=== PATIENT | male | born 1940 | race Caucasian/White ===

== ENCOUNTER 2024-02-01 14:31 | Inpatient (IN) | payer MEDICARE ==
--- NOTE | 2024-02-01 15:27 | ED ---
General Adult HPI - General Chief complaint: Abdominal Pain Stated complaint: Abd Pain Time Seen by Provider: 02/01/24 14:51 Source: patient, EMS, RN notes reviewed, old records reviewed Mode of arrival: EMS Limitations: no limitations, altered mental status - History of Present Illness Initial comments: Patient is an 83-year-old male present to the emergency department with concern for abdominal pain. Patient was transferred from [facility]. There they did evaluation with CT scan concerning for diverticulitis with abscess. Patient was transferred for surgical care. The reports revealed symptoms for a week however patient states that has been going on for months. Patient is a poor historian. - Related Data Home Medications Medication Instructions Recorded Confirmed Aspirin 81 mg PO DAILY 02/04/14 02/04/14 Ibuprofen [Motrin] 400 mg PO Q8HR PRN 02/04/14 02/04/14 Simvastatin [Zocor] 40 mg PO HS 02/04/14 02/04/14 lisinopriL [Prinivil] 20 mg PO DAILY 02/04/14 02/04/14 Previous Rx's Medication Instructions Recorded cloNIDine [Catapres-TTS] 1 each TRANSDERM Q7DAYS #4 patch 02/04/14 Allergies Allergy/AdvReac Type Severity Reaction Status Date / Time amoxicillin [Amoxicillin] Allergy Rash/Hives Verified 02/01/24 14:47 cephalexin monohydrate Allergy Rash/Hives Verified 02/01/24 14:47 [From Keflex] Review of Systems ROS Statement: Those systems with pertinent positive or pertinent negative responses have been documented in the HPI. Limitations: ROS unobtainable due to patients medical condition Gastrointestinal: Reports: as per HPI, abdominal pain Past Medical History Past Medical History: Hyperlipidemia, Hypertension History of Any Multi-Drug Resistant Organisms: None Reported Past Surgical History: Tonsillectomy Additional Past Surgical History / Comment(s): Right toe, left knee Past Psychological History: No Psychological Hx Reported Smoking Status: Never smoker Past Alcohol Use History: Occasional Past Drug Use History: None Reported General Exam Limitations: no limitations, altered mental status General appearance: alert, in no apparent distress Head exam: Present: normocephalic Eye exam: Present: normal appearance Neck exam: Present: normal inspection Respiratory exam: Present: normal lung sounds bilaterally Cardiovascular Exam: Present: regular rate, normal rhythm GI/Abdominal exam: Present: soft, tenderness (Moderate to severe tenderness left lower abdomen), normal bowel sounds. Absent: distended, rebound, rigid, pulsatile mass Extremities exam: Present: normal inspection Neurological exam: Present: alert Psychiatric exam: Present: normal affect, normal mood Skin exam: Present: normal color Course Vital Signs 02/01/24 14:35 Temperature 97.6 F Pulse Rate 66 Respiratory 18 Rate Blood Pressure 120/76 O2 Sat by Pulse 96 Oximetry Medical Decision Making - Medical Decision Making Was pt. sent in by a medical professional or institution (, PA, DEWATERING FILTERING SUPERVISOR, urgent care, hospital, or senior living...) When possible be specific @ -Patient was sent from [facility] Did you speak to anyone other than the patient for history (EMS, parent, family, police, friend...)? What history was obtained from this source @ -I did speak with transferring physician Dr. Moore Did you review nursing and triage notes (agree or disagree)? Why? @ -I reviewed and agree with nursing and triage notes Were old charts reviewed (outside hosp., previous admission, EMS record, old EKG, old radiological studies, urgent care reports/EKG's, senior living records)? Report findings @ -Chart reviewed from [facility] Differential Diagnosis (chest pain, altered mental status, abdominal pain women, abdominal pain men, vaginal bleeding, weakness, fever, dyspnea, syncope, headache, dizziness, GI bleed, back pain, seizure, CVA, palpatations, mental health, musculoskeletal)? @ -Differential Abdominal Pain Men: Appendicitis, cholecystitis, diverticulosis, ischemic bowel, pancreatitis, hepatitis, UTI, gastroenteritis, AAA, incarcerated hernia, bowel obstruction, constipation, inflammatory bowel, hepatitis, peptic ulcer disease, splenic infarction, perforated viscus, testicular torsion, this is not meant to be an all-inclusive list EKG interpreted by me (3pts min.). @ -As above X-rays interpreted by me (1pt min.). @ -None done CT interpreted by me (1pt min.). @ -None done U/S interpreted by me (1pt. min.). @ -None done What testing was considered but not performed or refused? (CT, X-rays, U/S, labs)? Why? @ -Consider blood work, blood culture and CT however this was done at transferring facility What meds were considered but not given or refused? Why? @ -IV antibiotics will be continued Did you discuss the management of the patient with other professionals (professionals i.e. , PA, DEWATERING FILTERING SUPERVISOR, lab, RT, psych nurse, social media campaign manager, shipping hand, teacher, juvenile probation officer, upper caser)? Give summary @ -Dr. Santos, for surgical call Was smoking cessation discussed for >3mins.? @ -No Was critical care preformed (if so, how long)? @ -No Were there social determinants of health that impacted care today? How? (Homelessness, low income, unemployed, alcoholism, drug addiction, transportation, low edu. Level, literacy, decrease access to med. care, fpc, rehab)? @ -No Was there de-escalation of care discussed even if they declined (Discuss DNR or withdrawal of care, Hospice)? DNR status @ -No What co-morbidities impacted this encounter? (DM, HTN, Smoking, COPD, CAD, Cancer, CVA, ARF, Chemo, Hep., AIDS, mental health diagnosis, sleep apnea, morbid obesity)? @ -There is a history of dementia and appears also to be some sort of history of colon cancer. Was patient admitted / discharged? Hospital course, mention meds given and route, prescriptions, significant lab abnormalities, going to OR and other pertinent info. @ -Patient presents as a transfer for diverticulitis with abscess formation. Patient will be admitted, orders written. Undiagnosed new problem with uncertain prognosis? @ -No Drug Therapy requiring intensive monitoring for toxicity (Heparin, Nitro, Insulin, Cardizem)? @ -No Were any procedures done? @ -No Diagnosis/symptom? @ -Diverticulitis with abscess Acute, or Chronic, or Acute on Chronic? @ -Acute Uncomplicated (without systemic symptoms) or Complicated (systemic symptoms)? @ -Complicated with abscess Side effects of treatment? @ -No Exacerbation, Progression, or Severe Exacerbation? @ -No Poses a threat to life or bodily function? How? (Chest pain, [place], [place], pneumonia, PE, COPD, DKA, ARF, appy, cholecystitis, CVA, Diverticulitis, Homicidal, Suicidal, threat to staff... and all critical care pts) @ -Threat to bowel function and sepsis Disposition Clinical Impression: Diverticulitis of intestine with abscess Disposition: ADMITTED IP TO THIS HOSP Condition: Serious Is patient prescribed a controlled substance at d/c from ED?: No Referrals: Rodrigo Washburn MD [Primary Care Provider] - 1-2 days Time of Disposition: 15:26
[2024-02-01] MEDS ORDERED: NALOXONE 0.4 MG/ML 1 ML VIAL IV PRN (15:29)
[2024-02-01] MEDS ORDERED: ONDANSETRON 4 MG/2 ML VIAL IVP PRN (15:29)
[2024-02-01] MEDS: SODIUM CHLORIDE 0.9% 1,000 ML IV SCH (16:18)
[2024-02-01] MEDS: metroNIDAZOLE-NS PMX 500 MG in SALINE 1 100ML.BAG IVPB SCH (16:18)
[2024-02-01] MEDS: LEVOFLOXACIN 750MG-D5W PMX 750 MG in DEXTROSE/WATER 1 150ML.BAG IVPB ONE (16:18)
--- NOTE | 2024-02-01 22:15 | P.HPIM ---
History of Present Illness H&P Date: 02/01/24 Chief Complaint: Jack pain This 83-year-old patient who follows with Dr. Washburn. Because of underlying dementia patient not able to give much of a history. History is obtained by the nurse in the ER and, transfer notes from [facility]. Chronic medical conditions include hypertension, some colon resection for colon cancer, gout, dementia hyperlipidemia. Patient presented to the ER for 1 week of abdominal pain. At the baseline patient has diarrhea. CT scan showed proximal sigmoid area air-fluid level collection 6.1 x 9.5 cm representing an abscess. Patient started on IV Levaquin and Flagyl in the ER. IV fluids. Made NPO. Patient's was present earlier was left the ER now. Review of systems cannot really be obtained because of patient's underlying dementia -Physical examination: VITAL SIGNS: 98.6, 88, 18, 123 x 69, 96% room air GENERAL: BMI 24.3, laying in bed awake not in distress. EYES: Pupils equal. Conjunctiva yanni l. HEENT: External appearance of nose and ears normal, oral cavity grossly normal. NECK: JVD not raised; masses not palpable. HEART: First and second heart sounds are normal; no edema. LUNGS: Respiratory rate normal; decreased breath sounds. ABDOMEN: Soft, left-sided tenderness, no obvious guarding or rigidity liver spleen not palpable, no masses palpable. PSYCH: Patient can tell his name. Not sure about the age. Not sure about the month or the president l. MUSCULOSKELETAL:No Clubbing/cyanosis;muscles-grossly intact. OA NEUROLOGICAL: Cranial nerves grossly intact; no facial asymmetry, power and sensation grossly intact. LYMPHATICS: No lymph nodes palpable in the axilla and neck INVESTIGATIONS, reviewed in the clinical context: Blood work from [facility]: White count 14.3 hemoglobin 13.4 platelets 315 sodium 131 potassium 2.9 BUN 20.[address] scan abdomen results: Gallstones. 1.8 cm nodule left lobe of the liver. Inflammatory changes around the proximal sigmoid colon along with a air-fluid collection 6.1 x 9.5 cm. Assessment plan: -Acute diverticulitis with perforation with what appears to be questionable contained abscess with a CT scan showing 6.1 x 9.5 cm. IV Levaquin. IV Flagyl. General surgery following. Patient NPO. -Severe cognitive impairment from underlying Alzheimer's dementia Namenda. Aricept -Essential hypertension Losartan hydrochlorothiazide -Hyperlipidemia Crestor -History of prior colon cancer with localized resection -Full code [nurse had called the to check on the same] Resume home medications. Keep n.p.o. except for oral medication with a sip of water Thank you Dr. Santos Past Medical History Past Medical History: Hyperlipidemia, Hypertension History of Any Multi-Drug Resistant Organisms: None Reported Past Surgical History: Tonsillectomy Additional Past Surgical History / Comment(s): Right toe, left knee Past Psychological History: No Psychological Hx Reported Smoking Status: Never smoker Past Alcohol Use History: Occasional Past Drug Use History: None Reported Medications and Allergies Home Medications Medication Instructions Recorded Confirmed Type Aspirin 81 mg PO DAILY 02/04/14 02/01/24 History Donepezil [Aricept] 10 mg PO DAILY 02/01/24 02/01/24 History Losartan/Hydrochlorothiazide 1 tab PO DAILY 02/01/24 02/01/24 History [Losartan-Hctz 50-12.5 mg Tab] Memantine [Namenda] 10 mg PO BID 02/01/24 02/01/24 History Rosuvastatin Calcium [Crestor] 40 mg PO DAILY 02/01/24 02/01/24 History hydroCHLOROthiazide [Hydrodiuril] 12.5 mg PO DAILY 02/01/24 02/01/24 History Allergies Allergy/AdvReac Type Severity Reaction Status Date / Time amoxicillin [Amoxicillin] Allergy Rash/Hives Verified 02/01/24 15:58 cephalexin monohydrate Allergy Rash/Hives Verified 02/01/24 15:58 [From Keflex] Physical Exam Vitals: Vital Signs Temp Pulse Resp BP Pulse Ox 02/01/24 20:13 98.6 F 88 18 123/69 96 02/01/24 14:35 97.6 F 66 18 120/76 96 Intake and Output 02/01/24 02/01/24 02/01/24 06:59 14:59 22:59 Other: Weight 70.307 kg
[2024-02-01 22:27] LABS: Basophils % (A) 0 %; Eosinophils % (A) 0 %; HCT 40.7 % (39.0-53.0); HGB 13.2 gm/dL (13.0-17.5); Lymphocytes # (A) 0.6 k/uL (1.0-4.8); Lymphocytes % (A) 3 %; MCH 32.1 pg (25.0-35.0); MCHC 32.5 g/dL (31.0-37.0); Mean Platelet Volume 7.4; Monocytes # (A) 0.8 k/uL (0-1.0); Monocytes % (A) 4 %; Neutrophils # (A) 17.3 k/uL (1.3-7.7); Neutrophils % (A) 92 %; Platelet Count 369 k/uL (150-450); RBC 4.11 m/uL (4.30-5.90); RDW 12.3 % (11.5-15.5); WBC 18.9 k/uL (3.8-10.6)
[2024-02-01 22:37] LABS: ALT 15 U/L (4-49); AST 21 U/L (17-59); African American GFR (CKD) 76 (>60 ml/min/1.73 sqM); Albumin 2.8 g/dL (3.5-5.0); Alkaline Phosphatase 89 U/L (38-126); Anion Gap 10 mmol/L; Blood Urea Nitrogen 18 mg/dL (9-20); Calcium 8.6 mg/dL (8.4-10.2); Carbon Dioxide 21 mmol/L (22-30); Chloride 102 mmol/L (98-107); Globulin 2.8 g/dL; Glucose 78 mg/dL (74-99); Non-African American GFR(CKD) 66 (>60 ml/min/1.73 sqM); Potassium 3.1 mmol/L (3.5-5.1); Sodium 133 mmol/L (137-145); Total Bilirubin 1.5 mg/dL (0.2-1.3); Total Protein 5.6 g/dL (6.3-8.2)
[2024-02-01] MEDS: ENOXAPARIN 40 MG/0.4 ML SYRINGE SQ SCH (22:52)
--- NOTE | 2024-02-01 23:10 | P.GSCN ---
History of Present Illness History of present illness: is 83-year-old patient who follows with Dr. Washburn. Because of underlying dementia patient not able to give much of a history. History is obtained by the nurse in the ER and, transfer notes from [facility]. Chronic medical conditions include hypertension, some colon resection for colon cancer, gout, dementia hyperlipidemia. Patient presented to the ER for 1 week of abdominal pain. At the baseline patient has diarrhea. CT scan showed proximal sigmoid area air-fluid level collection 6.1 x 9.5 cm representing an abscess. Patient started on IV Levaquin and Flagyl in the ER. IV fluids. Made NPO. Patient's was present earlier was left the ER now. Review of Systems - Constitutional Reports as per HPI Past Medical History Past Medical History: Hyperlipidemia, Hypertension History of Any Multi-Drug Resistant Organisms: None Reported Past Surgical History: Tonsillectomy Additional Past Surgical History / Comment(s): Right toe, left knee Past Psychological History: No Psychological Hx Reported Smoking Status: Never smoker Past Alcohol Use History: Occasional Past Drug Use History: None Reported Medications and Allergies Home Medications Medication Instructions Recorded Confirmed Type Aspirin 81 mg PO DAILY 02/04/14 02/01/24 History Donepezil [Aricept] 10 mg PO DAILY 02/01/24 02/01/24 History Losartan/Hydrochlorothiazide 1 tab PO DAILY 02/01/24 02/01/24 History [Losartan-Hctz 50-12.5 mg Tab] Memantine [Namenda] 10 mg PO BID 02/01/24 02/01/24 History Rosuvastatin Calcium [Crestor] 40 mg PO DAILY 02/01/24 02/01/24 History hydroCHLOROthiazide [Hydrodiuril] 12.5 mg PO DAILY 02/01/24 02/01/24 History Allergies Allergy/AdvReac Type Severity Reaction Status Date / Time amoxicillin [Amoxicillin] Allergy Rash/Hives Verified 02/01/24 15:58 cephalexin monohydrate Allergy Rash/Hives Verified 02/01/24 15:58 [From Keflex] Surgical - Exam Osteopathic Statement: *. No significant issues noted on an osteopathic structural exam other than those noted in the History and Physical/Consult. Vital Signs Temp Pulse Resp BP Pulse Ox 97.6 F 66 18 120/76 96 02/01/24 14:35 02/01/24 14:35 02/01/24 14:35 02/01/24 14:35 02/01/24 14:35 - General gen: nad cv: rrr pul: non labored breathing abd: soft, non distended, tender to palpation in left lower quadrant, Results - Labs 02/01/24 21:32 02/01/24 21:32 Abnormal Lab Results - Last 24 Hours (Table) 02/01/24 02/01/24 Range/Units 21:32 21:32 WBC 18.9 H (3.8-10.6) k/uL RBC 4.11 L (4.30-5.90) m/uL Neutrophils # 17.3 H (1.3-7.7) k/uL Lymphocytes # 0.6 L (1.0-4.8) k/uL Sodium 133 L (137-145) mmol/L Potassium 3.1 L (3.5-5.1) mmol/L Carbon Dioxide 21 L (22-30) mmol/L Total Bilirubin 1.5 H (0.2-1.3) mg/dL Total Protein 5.6 L (6.3-8.2) g/dL Albumin 2.8 L (3.5-5.0) g/dL Diabetes panel 02/01/24 Range/Units 21:32 Sodium 133 L (137-145) mmol/L Potassium 3.1 L (3.5-5.1) mmol/L Chloride 102 (98-107) mmol/L Carbon Dioxide 21 L (22-30) mmol/L BUN 18 (9-20) mg/dL Creatinine 1.06 (0.66-1.25) mg/dL Glucose 78 (74-99) mg/dL Calcium 8.6 (8.4-10.2) mg/dL AST 21 (17-59) U/L ALT 15 (4-49) U/L Alkaline Phosphatase 89 (38-126) U/L Total Protein 5.6 L (6.3-8.2) g/dL Albumin 2.8 L (3.5-5.0) g/dL Calcium panel 02/01/24 Range/Units 21:32 Calcium 8.6 (8.4-10.2) mg/dL Albumin 2.8 L (3.5-5.0) g/dL Pituitary panel 02/01/24 Range/Units 21:32 Sodium 133 L (137-145) mmol/L Potassium 3.1 L (3.5-5.1) mmol/L Chloride 102 (98-107) mmol/L Carbon Dioxide 21 L (22-30) mmol/L BUN 18 (9-20) mg/dL Creatinine 1.06 (0.66-1.25) mg/dL Glucose 78 (74-99) mg/dL Calcium 8.6 (8.4-10.2) mg/dL Adrenal panel 02/01/24 Range/Units 21:32 Sodium 133 L (137-145) mmol/L Potassium 3.1 L (3.5-5.1) mmol/L Chloride 102 (98-107) mmol/L Carbon Dioxide 21 L (22-30) mmol/L BUN 18 (9-20) mg/dL Creatinine 1.06 (0.66-1.25) mg/dL Glucose 78 (74-99) mg/dL Calcium 8.6 (8.4-10.2) mg/dL Total Bilirubin 1.5 H (0.2-1.3) mg/dL AST 21 (17-59) U/L ALT 15 (4-49) U/L Alkaline Phosphatase 89 (38-126) U/L Total Protein 5.6 L (6.3-8.2) g/dL Albumin 2.8 L (3.5-5.0) g/dL Assessment and Plan Assessment: 83 yo male w/ diverticular abscess -iv abx -npo -IR for drainage Time with Patient: Less than 30
--- NOTE | 2024-02-02 00:37 | XR ---
EXAM: XR Chest, 1 View CLINICAL HISTORY: ITS.REASON XR Reason: per Dr. Sher TECHNIQUE: Frontal view of the chest. COMPARISON: No previous studies. FINDINGS: Lungs: Minimal scarring/subsegmental atelectasis noted near the left CP angle. Pleural space: Unremarkable. No pneumothorax. Heart: Mild cardiomegaly. Post CABG changes. Mediastinum: Unremarkable. Normal mediastinal contour. Bones/joints: Sternotomy wires are noted in place. No acute fracture. Other findings: Hypoaeration. IMPRESSION: 1. Mild cardiomegaly. 2. Post CABG changes. 3. Minimal scarring/subsegmental atelectasis at the left lung base. 4. Hypoaeration.
[2024-02-02 09:01] LABS: Basophils # (A) 0.03 X 10*3/uL (0.00-0.10); Basophils % (A) 0.2 %; Eosinophils # (A) 0.02 X 10*3/uL (0.04-0.35); Eosinophils % (A) 0.1 %; HCT 37.6 % (39.6-50.0); HGB 12.5 g/dL (13.0-17.0); Lymphocytes # (A) 0.71 X 10*3/uL (0.90-5.00); MCH 32.1 pg (27.0-32.0); MCHC 33.2 g/dL (32.0-37.0); MCV 96.4 FL (80.0-97.0); Mean Platelet Volume 9.5 FL (9.5-12.2); Monocytes # (A) 1.12 X 10*3/uL (0.20-1.00); Monocytes % (A) 6.4 %; NRBC Per 100 WBC 0 X 10*3/uL (0.00-0.01); Neutrophils # (A) 15.67 X 10*3/uL (1.80-7.70); Neutrophils % (A) 88.8 %; Platelet Count 361 X 10*3/uL (140-440); RDW 12.5 % (11.5-14.5); WBC 17.63 X 10*3/uL (4.50-10.00)
[2024-02-02] MEDS: LOSARTAN-HCTZ 50-12.5 MG 1 EACH TAB PO SCH (09:07)
[2024-02-02] MEDS: ATORVASTATIN 80 MG TAB PO SCH (09:08)
[2024-02-02] MEDS: MEMANTINE 10 MG TAB PO SCH (09:08)
[2024-02-02] MEDS: DONEPEZIL 10 MG TAB PO SCH (09:08)
[2024-02-02] MEDS: PANTOPRAZOLE 40 MG/10 ML VIAL IV SCH (09:11)
[2024-02-02 09:42] LABS: ALT 11 U/L (10-49); AST 18 U/L (14-35); Albumin 2.8 g/dL (3.8-4.9); Albumin/Globulin Ratio 1.08 Ratio (1.60-3.17); Alkaline Phosphatase 88 U/L (41-126); BUN/Creat Ratio 14.42 Ratio (12.00-20.00); Blood Urea Nitrogen 17.3 mg/dL (9.0-27.0); Calcium 8.4 mg/dL (8.7-10.3); Carbon Dioxide 21.7 mmol/L (21.6-31.8); Chloride 98 mmol/L (96-109); Globulin 2.6 g/dL (1.6-3.3); Glucose 95 mg/dL (70-110); Potassium 3.2 mmol/L (3.5-5.5); Sodium 137 mmol/L (135-145); Total Bilirubin 1.2 mg/dL (0.3-1.2); Total Protein 5.4 g/dL (6.2-8.2)
[2024-02-02] MEDS: POTASSIUM CHLORIDE ER 20 MEQ TAB.ER PO STA (11:21)
[2024-02-02 14:38] LABS: INR 1.2 (<1.2); Prothrombin Time 12.8 sec (10.0-12.5)
--- NOTE | 2024-02-02 14:40 | P.PN ---
Subjective Patient seen and evaluated at bedside. Patient complaining of abdominal pain. Objective - Vital Signs Vital signs: Vital Signs Temp 98.2 F 02/02/24 10:54 Pulse 62 02/02/24 10:54 Resp 18 02/02/24 10:54 BP 118/69 02/02/24 10:54 Pulse Ox 94 L 02/02/24 10:54 FiO2 Intake & Output 02/01/24 02/02/24 02/02/24 18:59 06:59 18:59 Weight 70.307 kg 70.307 kg - Exam gen: nad cv: rrr pul: non labored breathing abd: soft, non distended, tender to palpation in the left upper quadrant - Labs CBC & Chem 7: 02/02/24 04:10 02/02/24 04:10 Labs: Abnormal Lab Results - Last 24 Hours (Table) 02/01/24 02/01/24 02/02/24 Range/Units 21:32 21:32 04:10 WBC 18.9 H 17.63 H (3.8-10.6) k/uL RBC 4.11 L 3.90 L (4.30-5.90) m/uL Hgb 12.5 L (13.0-17.0) g/dL Hct 37.6 L (39.6-50.0) % MCH 32.1 H (27.0-32.0) pg Immature Gran # 0.08 H (0.00-0.04) X 10*3/uL Neutrophils # 17.3 H 15.67 H (1.3-7.7) k/uL Lymphocytes # 0.6 L 0.71 L (1.0-4.8) k/uL Monocytes # 1.12 H (0.20-1.00) X 10*3/uL Eosinophils # 0.02 L (0.04-0.35) X 10*3/uL Sodium 133 L (137-145) mmol/L Potassium 3.1 L (3.5-5.1) mmol/L Carbon Dioxide 21 L (22-30) mmol/L Anion Gap (4.00-12.00) mmol/L Calcium (8.7-10.3) mg/dL Total Bilirubin 1.5 H (0.2-1.3) mg/dL Total Protein 5.6 L (6.3-8.2) g/dL Albumin 2.8 L (3.5-5.0) g/dL Albumin/Globulin Ratio (1.60-3.17) Ratio 02/01/ Range/Units 04:10 WBC (3.8-10.6) k/uL RBC (4.30-5.90) m/uL Hgb (13.0-17.0) g/dL Hct (39.6-50.0) % MCH (27.0-32.0) pg Immature Gran # (0.00-0.04) X 10*3/uL Neutrophils # (1.3-7.7) k/uL Lymphocytes # (1.0-4.8) k/uL Monocytes # (0.20-1.00) X 10*3/uL Eosinophils # (0.04-0.35) X 10*3/uL Sodium (137-145) mmol/L Potassium 3.2 L (3.5-5.1) mmol/L Carbon Dioxide (22-30) mmol/L Anion Gap 17.30 H (4.00-12.00) mmol/L Calcium 8.4 L (8.7-10.3) mg/dL Total Bilirubin (0.2-1.3) mg/dL Total Protein 5.4 L (6.3-8.2) g/dL Albumin 2.8 L (3.5-5.0) g/dL Albumin/Globulin Ratio 1.08 L (1.60-3.17) Ratio Assessment and Plan Assessment: 83 yo male w/ diverticular abscess -continue abx -IR drainage Time with Patient: Less than 30
[2024-02-02] MEDS: MORPHINE SULFATE 4 MG/ML SYRINGE IV PRN (16:20)
--- NOTE | 2024-02-02 16:48 | P.PN ---
Progress Note - Text Progress Note Date: 02/02/24 Chief Complaint: Jack pain This 83-year-old patient who follows with Dr. Washburn. Because of underlying dementia patient not able to give much of a history. History is obtained by the nurse in the ER and, transfer notes from [facility]. Chronic medical conditions include hypertension, some colon resection for colon cancer, gout, dementia hyperlipidemia. Patient presented to the ER for 1 week of abdominal pain. At the baseline patient has diarrhea. CT scan showed proximal sigmoid area air-fluid level collection 6.1 x 9.5 cm representing an abscess. Patient started on IV Levaquin and Flagyl in the ER. IV fluids. Made NPO. Patient's was present earlier was left the ER now. February 01: Patient remains NPO. Not in distress. Getting IV Levaquin and Flagyl. IV fluids. Discussed with the at the bedside. Patient has some abdominal pain but nothing significant. Awaiting interventional radiology to place a drain, scheduled for tomorrow Active Medications Acetaminophen (Acetaminophen Tab 325 Mg Tab) 650 mg PO Q6HR PRN PRN Reason: Mild Pain or Fever > 100.5 Atorvastatin Calcium (Atorvastatin 80 Mg Tab) 80 mg PO DAILY [facility] Last Admin: 02/02/24 09:08 Dose: 80 mg Donepezil HCl (Donepezil 10 Mg Tab) 10 mg PO DAILY [facility] Last Admin: 02/02/24 09:08 Dose: 10 mg Enoxaparin Sodium (Enoxaparin 40 Mg/0.4 Ml Syringe) 40 mg SQ DAILY [facility] Last Admin: 02/02/24 14:53 Dose: Not Given HCTZ/Losartan Potassium (Losartan-Hctz 50-12.5 Mg 1 Each Tab) 1 each PO DAILY [facility] Last Admin: 02/02/24 09:07 Dose: 1 each Metronidazole 500 mg/ IV (Solution) 100 mls @ 100 mls/hr IVPB Q8HR [facility]; Protocol Last Admin: 02/02/24 15:02 Dose: 100 mls/hr Sodium Chloride (Saline 0.9%) 1,000 mls @ 130 mls/hr IV .Q7H42M [facility] Last Admin: 02/02/24 15:02 Dose: 130 mls/hr Levofloxacin 750 mg/ IV (Solution) 150 mls @ 100 mls/hr IVPB Q48H [facility]; Protocol Lorazepam (Lorazepam 2 Mg/Ml Inj) 1 mg IV ONCE ONE Stop: 02/03/24 08:01 Memantine (Memantine 10 Mg Tab) 10 mg PO BID [facility] Last Admin: 02/02/24 09:08 Dose: 10 mg Morphine Sulfate (Morphine Sulfate 4 Mg/Ml Syringe) 4 mg IV Q4HR PRN PRN Reason: Severe Pain (Scale 7 to 10) Last Admin: 02/02/24 16:20 Dose: 4 mg Naloxone HCl (Naloxone 0.4 Mg/Ml 1 Ml Vial) 0.2 mg IV Q2M PRN PRN Reason: Opioid Reversal Pantoprazole Sodium (Pantoprazole 40 Mg/10 Ml Vial) 40 mg IV DAILY [facility] Last Admin: 02/02/24 09:11 Dose: 40 mg -Physical examination: VITAL SIGNS: 97.8, 69, 18, 119 x 73, 96% room air GENERAL: In bed, not in distress s. EYES: Pupils equal. Conjunctiva yanni l. HEENT: External appearance of nose and ears normal, oral cavity grossly normal. NECK: JVD not raised; masses not palpable. HEART: First and second heart sounds are normal; no edema. LUNGS: Respiratory rate normal; decreased breath sounds. ABDOMEN: Soft, left-sided tenderness, no guarding or rigidity liver spleen not palpable, no masses palpable. PSYCH: Patient can tell his name. Not sure about the age. Not sure about the month or the president l. MUSCULOSKELETAL:No Clubbing/cyanosis;muscles-grossly intact. OA INVESTIGATIONS, reviewed in the clinical context: February 01: White count 7.6 hemoglobin 12.5 platelets 361 potassium 3.2 creatinine 1.2 Blood work from [facility]: White count 14.3 hemoglobin 13.4 platelets 315 sodium 131 potassium 2.9 BUN 20.[address] scan abdomen results: Gallstones. 1.8 cm nodule left lobe of the liver. Inflammatory changes around the proximal sigmoid colon along with a air-fluid collection 6.1 x 9.5 cm. Assessment plan: -Acute diverticulitis with perforation with probable contained abscess with a CT scan showing 6.1 x 9.5 cm. IV Levaquin. IV Flagyl. General surgery following. Pending interventional radiology guided drain now scheduled for tomorrow Patient NPO. -Severe cognitive impairment from underlying Alzheimer's dementia Namenda. Aricept -Essential hypertension Losartan hydrochlorothiazide - -Hyperlipidemia Crestor -History of prior colon cancer with localized resection -Full code Patient remains n.p.o. except medications. Discussed with at the bedside. Follow Thank you Dr. Santos Past Medical History Past Medical History: Hyperlipidemia, Hypertension History of Any Multi-Drug Resistant Organisms: None Reported Past Surgical History: Tonsillectomy Additional Past Surgical History / Comment(s): Right toe, left knee Past Psychological History: No Psychological Hx Reported Smoking Status: Never smoker Past Alcohol Use History: Occasional Past Drug Use History: None Reported
[2024-02-02] MEDS: ACETAMINOPHEN TAB 325 MG TAB PO PRN (22:24)
[2024-02-03] MEDS: LORazepam 2 MG/ML INJ IV ONE (10:29)
--- NOTE | 2024-02-03 11:59 | CT ---
EXAMINATION TYPE: CT guided abscess drainage DATE OF EXAM: 02/03/2024 11:44 AM CLINICAL INDICATION:Male, 83 years old with history of See IR consult for order details.; CT guided a bscess drainage, [facility] COMPARISON: CT 02/01/2024 TECHNIQUE: CT-guided abscess drainage with pigtail catheter placement. CT DLP: 724 mGycm, Automated exposure control for dose reduction was used. Contrast used: mL of , none Oral contrast used: none ATTENDING: Jose Lozada D.O. PROCEDURE: Informed consent was obtained. DLP administered was [address] localizer images were taken which showed safest allowable access to the fluid/air collecti on in the left abdominal wall. The patient was prepped, draped in the usual sterile fashion, and loc ally anesthetized. Trochar technique utilized with 8.5 portuguese pig tail catheter was placed. Approximately 6 mL of bloody purulent fluid was drained and sent to the lab for analysis. A drainag e bag was then attached the catheter. There was normal blood loss and post-procedure hemostasis was achieved. The patient tolerated the procedure well without complication. Patient was transferred to the general medical floor in stable condition. IMPRESSION: CT guided placement of a percutaneous pigtail drainage catheter. [facility], , 02/03/2024 11:57 AM
--- NOTE | 2024-02-03 14:33 | P.PN ---
Progress Note - Text Progress Note Date: 02/03/24 Chief Complaint: Jack pain This 83-year-old patient who follows with Dr. Washburn. Because of underlying dementia patient not able to give much of a history. History is obtained by the nurse in the ER and, transfer notes from [facility]. Chronic medical conditions include hypertension, some colon resection for colon cancer, gout, dementia hyperlipidemia. Patient presented to the ER for 1 week of abdominal pain. At the baseline patient has diarrhea. CT scan showed proximal sigmoid area air-fluid level collection 6.1 x 9.5 cm representing an abscess. Patient started on IV Levaquin and Flagyl in the ER. IV fluids. Made NPO. Patient's was present earlier was left the ER now. February 01: Patient remains NPO. Not in distress. Getting IV Levaquin and Flagyl. IV fluids. Discussed with the at the bedside. Patient has some abdominal pain but nothing significant. Awaiting interventional radiology to place a drain, scheduled for tomorrow February 02: Patient had interventional radiology place a drain in the peridiverticular abscess. Putting out yellow-brown in the back. at the bedside. Remains on IV Levaquin and Flagyl. IV fluids. Remains n.p.o. Active Medications Acetaminophen (Acetaminophen Tab 325 Mg Tab) 650 mg PO Q6HR PRN PRN Reason: Mild Pain or Fever > 100.5 Last Admin: 02/02/24 22:24 Dose: 650 mg Atorvastatin Calcium (Atorvastatin 80 Mg Tab) 80 mg PO DAILY [facility] Last Admin: 02/03/24 08:15 Dose: 80 mg Donepezil HCl (Donepezil 10 Mg Tab) 10 mg PO DAILY [facility] Last Admin: 02/03/24 08:15 Dose: 10 mg Enoxaparin Sodium (Enoxaparin 40 Mg/0.4 Ml Syringe) 40 mg SQ DAILY [facility] Last Admin: 02/02/24 14:53 Dose: Not Given HCTZ/Losartan Potassium (Losartan-Hctz 50-12.5 Mg 1 Each Tab) 1 each PO DAILY [facility] Last Admin: 02/03/24 08:15 Dose: 1 each Metronidazole 500 mg/ IV (Solution) 100 mls @ 100 mls/hr IVPB Q8HR [facility]; Protocol Last Admin: 02/03/24 08:14 Dose: 100 mls/hr Sodium Chloride (Saline 0.9%) 1,000 mls @ 130 mls/hr IV .Q7H42M [facility] Last Admin: 02/03/24 06:09 Dose: 130 mls/hr Levofloxacin 750 mg/ IV (Solution) 150 mls @ 100 mls/hr IVPB Q48H [facility]; Protocol Memantine (Memantine 10 Mg Tab) 10 mg PO BID [facility] Last Admin: 02/03/24 08:15 Dose: 10 mg Morphine Sulfate (Morphine Sulfate 4 Mg/Ml Syringe) 4 mg IV Q4HR PRN PRN Reason: Severe Pain (Scale 7 to 10) Last Admin: 02/03/24 02:35 Dose: 4 mg Naloxone HCl (Naloxone 0.4 Mg/Ml 1 Ml Vial) 0.2 mg IV Q2M PRN PRN Reason: Opioid Reversal Pantoprazole Sodium (Pantoprazole 40 Mg/10 Ml Vial) 40 mg IV DAILY [facility] Last Admin: 02/03/24 08:15 Dose: 40 mg -Physical examination: VITAL SIGNS: 98.7, 88, 17, 122 x 71, 95% room air okay GENERAL: In bed, appears comfortable EYES: Pupils equal. Conjunctiva yanni l. HEENT: External appearance of nose and ears normal, oral cavity grossly normal. NECK: JVD not raised; masses not palpable. HEART: First and second heart sounds are normal; no edema. LUNGS: Respiratory rate normal; decreased breath sounds. ABDOMEN: Soft, left-sided tenderness, no guarding or rigidity liver spleen not palpable, no masses palpable. Left-sided pigtail catheter drainage, with the bag PSYCH: Patient can tell his name. Not sure about the age. Not sure about the month or the president l. MUSCULOSKELETAL:No Clubbing/cyanosis;muscles-grossly intact. OA INVESTIGATIONS, reviewed in the clinical context: February 01: White count 7.6 hemoglobin 12.5 platelets 361 potassium 3.2 creatinine 1.2 Blood work from [facility]: White count 14.3 hemoglobin 13.4 platelets 315 sodium 131 potassium 2.9 BUN 20.[address] scan abdomen results: Gallstones. 1.8 cm nodule left lobe of the liver. Inflammatory changes around the proximal sigmoid colon along with a air-fluid collection 6.1 x 9.5 cm. Assessment plan: -Acute diverticulitis with perforation with probable contained abscess with a CT scan showing 6.1 x 9.5 cm.: Slow to respond IV Levaquin. IV Flagyl. General surgery following. interventional radiology guided pigtail catheter placement with a bag. Yellow- brown colored output Will start the patient on clear liquids. Will add abdominal binder because of underlying dementia patient may pull out the tube. This was discussed with the . -Severe cognitive impairment from underlying Alzheimer's dementia Namenda. Aricept -Essential hypertension Losartan hydrochlorothiazide -Hyperlipidemia Crestor -History of prior colon cancer with localized resection -Full code Drainage placed. Start clear liquids. Discussed with . Thank you Dr. Santos Past Medical History Past Medical History: Hyperlipidemia, Hypertension History of Any Multi-Drug Resistant Organisms: None Reported Past Surgical History: Tonsillectomy Additional Past Surgical History / Comment(s): Right toe, left knee Past Psychological History: No Psychological Hx Reported Smoking Status: Never smoker Past Alcohol Use History: Occasional Past Drug Use History: None Reported
--- NOTE | 2024-02-03 14:39 | P.PN ---
Progress Note - Text Progress Note Date: 02/03/24 MELCHOR. Patients pain is improved. Patient had IR drainage of abscess today. VSS General-NAD Abdomen-soft, minimal diffuse TTP, ND 83 year old male with Diverticular Abscess s/p IR drainage -ok for CLD -Pain and Nausea control -Continue Antibiotics -Abdominal Binder Aleksander Adler [facility] [phone]
[2024-02-03] MEDS: LACTATED RINGERS 1,000 ML IV SCH (15:40)
[2024-02-03] MEDS: LEVOFLOXACIN 750MG-D5W PMX 750 MG in DEXTROSE/WATER 1 150ML.BAG IVPB SCH (18:17)
[2024-02-04 06:18] LABS: Basophils % (A) 0 %; Eosinophils % (A) 0 %; HCT 37.3 % (39.0-53.0); HGB 12.1 gm/dL (13.0-17.5); Lymphocytes # (A) 0.6 k/uL (1.0-4.8); Lymphocytes % (A) 3 %; MCHC 32.5 g/dL (31.0-37.0); MCV 98.3 fL (80.0-100.0); Mean Platelet Volume 7.8; Monocytes % (A) 5 %; Neutrophils # (A) 16.3 k/uL (1.3-7.7); Neutrophils % (A) 91 %; Platelet Count 344 k/uL (150-450); RDW 12.5 % (11.5-15.5); WBC 17.9 k/uL (3.8-10.6)
[2024-02-04 06:31] LABS: ALT 10 U/L (4-49); AST 19 U/L (17-59); African American GFR (CKD) 86 (>60 ml/min/1.73 sqM); Albumin 2.1 g/dL (3.5-5.0); Alkaline Phosphatase 64 U/L (38-126); Anion Gap 9 mmol/L; Blood Urea Nitrogen 13 mg/dL (9-20); Calcium 7.9 mg/dL (8.4-10.2); Carbon Dioxide 27 mmol/L (22-30); Chloride 95 mmol/L (98-107); Glucose 84 mg/dL (74-99); Non-African American GFR(CKD) 75 (>60 ml/min/1.73 sqM); Potassium 2.9 mmol/L (3.5-5.1); Sodium 131 mmol/L (137-145); Total Bilirubin 1.3 mg/dL (0.2-1.3); Total Protein 4.5 g/dL (6.3-8.2)
[2024-02-04] MEDS: POTASSIUM CHLORIDE ER 20 MEQ TAB.ER PO STA ×2 (08:04→10:28)
[2024-02-04] MEDS: CEFEPIME 2 GM in SODIUM CHLORIDE 0.9% 100 ML IVPB SCH (13:01)
[2024-02-04 13:21] LABS: African American GFR (CKD) 86 (>60 ml/min/1.73 sqM); Anion Gap 6 mmol/L; Blood Urea Nitrogen 12 mg/dL (9-20); Calcium 7.9 mg/dL (8.4-10.2); Carbon Dioxide 22 mmol/L (22-30); Chloride 100 mmol/L (98-107); Glucose 115 mg/dL (74-99); Non-African American GFR(CKD) 75 (>60 ml/min/1.73 sqM); Potassium 2.9 mmol/L (3.5-5.1); Sodium 128 mmol/L (137-145)
--- NOTE | 2024-02-04 14:58 | P.PN ---
Subjective Patient seen and evaluated at bedside. Patient still complains of left lower quadrant abdominal pain, denies fevers, chills, shortness of breath or chest pain. Objective - Vital Signs Vital signs: Vital Signs Temp 98.2 F 02/04/24 08:00 Pulse 80 02/04/24 08:00 Resp 16 02/04/24 08:00 BP 107/62 02/04/24 08:00 Pulse Ox 95 02/04/24 08:00 FiO2 Intake & Output 02/03/24 02/04/24 02/04/24 18:59 06:59 18:59 Output Total 400 900 20 Balance -400 -900 -20 Output: Drainage 20 Left Lower 20 Urine 400 900 Other: Voiding Method Urinal Urinal Urinal Diaper Diaper Diaper External Catheter # Voids 1 # Bowel Movements 1 - Exam gen: nad cv: rrr pul: non labored breathing abd: soft, tender to palpation in the left lower quadrant, previous IR drain recently removed by patient - Labs CBC & Chem 7: 02/04/24 05:46 02/04/24 12:45 Labs: Abnormal Lab Results - Last 24 Hours (Table) 02/04/24 02/04/24 02/04/24 Range/Units 05:46 05:46 12:45 WBC 17.9 H (3.8-10.6) k/uL RBC 3.80 L (4.30-5.90) m/uL Hgb 12.1 L (13.0-17.5) gm/dL Hct 37.3 L (39.0-53.0) % Neutrophils # 16.3 H (1.3-7.7) k/uL Lymphocytes # 0.6 L (1.0-4.8) k/uL Sodium 131 L 128 L (137-145) mmol/L Potassium 2.9 L 2.9 L (3.5-5.1) mmol/L Chloride 95 L (98-107) mmol/L Glucose 115 H (74-99) mg/dL Calcium 7.9 L 7.9 L (8.4-10.2) mg/dL Total Protein 4.5 L (6.3-8.2) g/dL Albumin 2.1 L (3.5-5.0) g/dL Microbiology - Last 24 Hours (Table) 02/03/24 11:25 Gram Stain - Preliminary Aspirate Assessment and Plan Assessment: 83 yo male w/ left lower quadrant diverticular abscess s/p IR drain -patient has history of dementia and removed his IR drain today -reconsult IR for replacement of IR drain. -continue iv abx, follow up IR recs Time with Patient: Less than 30
[2024-02-04] MEDS: POTASSIUM CHLORIDE ER 20 MEQ TAB.ER PO SCH (16:15)
--- NOTE | 2024-02-04 16:47 | P.PN ---
Progress Note - Text Progress Note Date: 02/04/24 Chief Complaint: Jack pain This 83-year-old patient who follows with Dr. Washburn. Because of underlying dementia patient not able to give much of a history. History is obtained by the nurse in the ER and, transfer notes from [facility]. Chronic medical conditions include hypertension, some colon resection for colon cancer, gout, dementia hyperlipidemia. Patient presented to the ER for 1 week of abdominal pain. At the baseline patient has diarrhea. CT scan showed proximal sigmoid area air-fluid level collection 6.1 x 9.5 cm representing an abscess. Patient started on IV Levaquin and Flagyl in the ER. IV fluids. Made NPO. Patient's was present earlier was left the ER now. February 01: Patient remains NPO. Not in distress. Getting IV Levaquin and Flagyl. IV fluids. Discussed with the at the bedside. Patient has some abdominal pain but nothing significant. Awaiting interventional radiology to place a drain, scheduled for tomorrow February 02: Patient had interventional radiology place a drain in the peridiverticular abscess. Putting out yellow-brown in the back. at the bedside. Remains on IV Levaquin and Flagyl. IV fluids. Remains n.p.o. February 03: Patient did pull out his pigtail catheter. IR was reconsulted. Spoke to the nurse to get a sitter. Inform family. Antibiotics are to continue. Patient started on clear liquids yesterday. Active Medications Acetaminophen (Acetaminophen Tab 325 Mg Tab) 650 mg PO Q6HR PRN PRN Reason: Mild Pain or Fever > 100.5 Last Admin: 02/04/24 10:38 Dose: 650 mg Atorvastatin Calcium (Atorvastatin 80 Mg Tab) 80 mg PO DAILY [facility] Last Admin: 02/04/24 08:04 Dose: 80 mg Donepezil HCl (Donepezil 10 Mg Tab) 10 mg PO DAILY [facility] Last Admin: 02/04/24 08:05 Dose: 10 mg Enoxaparin Sodium (Enoxaparin 40 Mg/0.4 Ml Syringe) 40 mg SQ DAILY [facility] Last Admin: 02/04/24 08:04 Dose: 40 mg HCTZ/Losartan Potassium (Losartan-Hctz 50-12.5 Mg 1 Each Tab) 1 each PO DAILY [facility] Last Admin: 02/04/24 08:05 Dose: 1 each Metronidazole 500 mg/ IV (Solution) 100 mls @ 100 mls/hr IVPB Q8HR [facility]; Protocol Last Admin: 02/04/24 16:15 Dose: 100 mls/hr Lactated Ringer's (Lactated Ringers) 1,000 mls @ 100 mls/hr IV .Q10H [facility] Last Admin: 02/04/24 05:13 Dose: 100 mls/hr Cefepime HCl 2 gm/ Sodium (Chloride) 100 mls @ 25 mls/hr IVPB Q12H [facility]; Protocol Memantine (Memantine 10 Mg Tab) 10 mg PO BID [facility] Last Admin: 02/04/24 08:05 Dose: 10 mg Morphine Sulfate (Morphine Sulfate 4 Mg/Ml Syringe) 4 mg IV Q4HR PRN PRN Reason: Severe Pain (Scale 7 to 10) Last Admin: 02/04/24 16:15 Dose: 4 mg Naloxone HCl (Naloxone 0.4 Mg/Ml 1 Ml Vial) 0.2 mg IV Q2M PRN PRN Reason: Opioid Reversal Pantoprazole Sodium (Pantoprazole 40 Mg/10 Ml Vial) 40 mg IV DAILY [facility] Last Admin: 02/04/24 08:04 Dose: 40 mg Potassium Chloride (Potassium Chloride Er 20 Meq Tab.Er) 40 meq PO Q2HR [facility] Stop: 02/04/24 18:01 Last Admin: 02/04/24 16:15 Dose: 40 meq -Physical examination: VITAL SIGNS: 98.2, 81, 17, 156 x 78, 94% room air GENERAL: In bed, appears comfortable EYES: Pupils equal. Conjunctiva yanni l. HEENT: External appearance of nose and ears normal, oral cavity grossly normal. NECK: JVD not raised; masses not palpable. HEART: First and second heart sounds are normal; no edema. LUNGS: Respiratory rate normal; decreased breath sounds. ABDOMEN: Soft, left-sided tenderness, no guarding or rigidity liver spleen not palpable, no masses palpable. Pigtail catheter was pulled out by the patient PSYCH: Patient can tell his name. Not sure about the age. Not sure about the month or the president l. MUSCULOSKELETAL:No Clubbing/cyanosis;muscles-grossly intact. OA INVESTIGATIONS, reviewed in the clinical context: February 03: White count 17.9 hemoglobin 12.1 platelets 344 sodium 128 potassium 2.9 creatinine 0.95 February 01: White count 7.6 hemoglobin 12.5 platelets 361 potassium 3.2 creatinine 1.2 Blood work from [facility]: White count 14.3 hemoglobin 13.4 platelets 315 sodium 131 potassium 2.9 BUN 20.[address] scan abdomen results: Gallstones. 1.8 cm nodule left lobe of the liver. Inflammatory changes around the proximal sigmoid colon along with a air-fluid collection 6.1 x 9.5 cm. Assessment plan: -Acute diverticulitis with perforation with probable contained abscess with a CT scan showing 6.1 x 9.5 cm.: Slow to respond IV Levaquin. IV Flagyl. General surgery following. interventional radiology guided pigtail catheter placement with a bag. Yellow- brown colored output Clear liquids. February 03: Overnight patient pulled out the pigtail catheter. IR reconsulted fo r replacement of the tube. Will order a sitter for the same.-When is not available -Severe cognitive impairment from underlying Alzheimer's dementia Namenda. Aricept -Essential hypertension Losartan. Stop hydrochlorothiazide -Severe hypokalemia: New diagnosis Replace and follow DC hydrochlorothiazide -Hyponatremia Lactated Ringer's -Hyperlipidemia Crestor -History of prior colon cancer with localized resection -Full code Reconsult IR. Other medications to continue. Clear liquid diet. Replace potassium. DC hydrochlorothiazide. Sitter Thank you Dr. Santos Past Medical History Past Medical History: Hyperlipidemia, Hypertension History of Any Multi-Drug Resistant Organisms: None Reported Past Surgical History: Tonsillectomy Additional Past Surgical History / Comment(s): Right toe, left knee Past Psychological History: No Psychological Hx Reported Smoking Status: Never smoker Past Alcohol Use History: Occasional Past Drug Use History: None Reported
--- NOTE | 2024-02-04 19:46 | CT ---
EXAMINATION TYPE: CT abdomen pelvis w con CT DLP: 1301.4 mGycm, Automated exposure control for dose reduction was used. DATE OF EXAM: 02/04/2024 7:34 PM COMPARISON: 02/03/2024 CLINICAL INDICATION: Male, 83 years old with history of fluid collection.; Fluid collection TECHNIQUE: Axial CT abdomen pelvis w con;Sagittal and coronal reformats were created on a separate w orkstation. Contrast used:100 ml mL of Isovue 370 with IV Contrast, (none if empty) Oral contrast used: without Oral Contrast (none if empty) FINDINGS: LOWER CHEST: Unremarkable ABDOMEN LIVER: Unremarkable GALLBLADDER AND BILE DUCTS: Gallstones in the gallbladder lumen. PANCREAS: Unremarkable. SPLEEN: Unremarkable. ADRENAL GLANDS: Unremarkable. KIDNEYS AND URETERS: No evidence of hydronephrosis or renal calculus. The ureters are unremarkable. Simple appearing renal cysts bilaterally. PELVIS BLADDER: Haziness around the urinary bladder wall with mild thickening. REPRODUCTIVE: Unremarkable. ABDOMEN & PELVIS STOMACH AND BOWEL: No evidence of bowel obstruction. PERITONEUM/RETROPERITONEUM: No evidence of pneumoperitoneum or free fluid. VASCULATURE: No evidence of aortic aneurysm. MUSCULOSKELETAL: No acute osseous abnormalities LYMPH NODES: No gross evidence for lymphadenopathy. SOFT TISSUE/ABDOMINAL WALL: Left lower anterior abdominal wall organizing fluid collection with gas w ith possible fistula formation series 202 image 49. Area measures roughly 9.5 x 6.2 x 8.8 cm. This wa s previously decompressed than one day prior 1 02/03/2024 CT. IMPRESSION: 1. Left lower anterior fluid collection which extends from the abdominal cavity into the multiple la yers of the abdominal wall and subcutaneous tissues. Fluid, gas and feces has reaccumulated which pre viously had a drainage catheter in place one day prior and was decompressed. There is suspected fistu la to the colon series 202 image 49 suspected feces throughout the anterior abdominal wall are noted. Given the patient already removed 1 drainage catheter Surgical consultation for evaluation for washo ut and evaluation for bowel perforation recommended. 2. Mild thickening of the urinary bladder wall with fat stranding changes correlate for cystitis. 3. Cholelithiasis. 4. Simple appearing renal cysts. [facility], Workstation: [id number], 02/04/2024 7:44 PM
[2024-02-05] MEDS: CEFEPIME 2 GM in SODIUM CHLORIDE 0.9% 100 ML IVPB SCH (00:27)
[2024-02-05 03:41] LABS: African American GFR (CKD) 78 (>60 ml/min/1.73 sqM); Anion Gap 5 mmol/L; Blood Urea Nitrogen 11 mg/dL (9-20); Calcium 8.1 mg/dL (8.4-10.2); Carbon Dioxide 23 mmol/L (22-30); Chloride 100 mmol/L (98-107); Glucose 85 mg/dL (74-99); Non-African American GFR(CKD) 68 (>60 ml/min/1.73 sqM); Sodium 128 mmol/L (137-145)
[2024-02-05] MEDS: LOSARTAN 50 MG TAB PO SCH (08:32)
--- NOTE | 2024-02-05 08:40 | P.CONS ---
History of Present Illness - Reason for Consult Consult date: 02/04/24 Diverticulitis with abscess Requesting physician: Carola Gaytan - Chief Complaint Abdominal pain x few days - History of Present Illness Patient is a 83-year-old male with a past medical history significant for hypertension hyperlipidemia presenting to the hospital about 4 days ago concerning for abdominal pain apparently the patient was initially evaluated at [facility] with the patient did have a CT abdominal pelvis concerning for diverticulitis with an abscess for the patient has been transferred to this facility patient on presentation to the hospital was afebrile however he did spike a fever on 02/02/2024 of 103.8 F the patient did have a low-grade fever of 99 degrees for night since then patient did have a elevated white count of 18.9 with a white count of 17.9 this morning creatinine has been normal patient has been evaluated by general surgery recommended CT-guided drainage of the abscess which was completed on 02/03/2024 fluid has been sent for the culture patient has been treated with the Levaquin and Flagyl because of his penicillin and questionable Keflex allergy infectious he was consulted today for further management of antibiotic therapy. Patient in the time my evaluation is afebrile apparently the patient did pull out his drainage catheter this morning patient mention he did not realize and is feeling stupid for pulling it out patient denies having any headache no chest pain shortness of breath or cough has been complaining of some lower abdominal pain unable to 0.5 to the further no vomiting or diarrhea has been reported by the nursing staff Review of Systems Positive point and negatives has been mentioned in the HPI, complete review of systems was performed and all other systems are negative Past Medical History Past Medical History: Hyperlipidemia, Hypertension History of Any Multi-Drug Resistant Organisms: None Reported Past Surgical History: Tonsillectomy Additional Past Surgical History / Comment(s): Right toe, left knee Past Psychological History: No Psychological Hx Reported Smoking Status: Never smoker Past Alcohol Use History: Occasional Past Drug Use History: None Reported Medications and Allergies Home Medications Medication Instructions Recorded Confirmed Type Aspirin 81 mg PO DAILY 02/04/14 02/01/24 History Donepezil [Aricept] 10 mg PO DAILY 02/01/24 02/01/24 History Losartan/Hydrochlorothiazide 1 tab PO DAILY 02/01/24 02/01/24 History [Losartan-Hctz 50-12.5 mg Tab] Memantine [Namenda] 10 mg PO BID 02/01/24 02/01/24 History Rosuvastatin Calcium [Crestor] 40 mg PO DAILY 02/01/24 02/01/24 History hydroCHLOROthiazide [Hydrodiuril] 12.5 mg PO DAILY 02/01/24 02/01/24 History Allergies Allergy/AdvReac Type Severity Reaction Status Date / Time amoxicillin [Amoxicillin] Allergy Rash/Hives Verified 02/01/24 15:58 cephalexin monohydrate Allergy Rash/Hives Verified 02/01/24 15:58 [From Keflex] Physical Exam Vitals: Vital Signs Temp Pulse Resp BP Pulse Ox 02/04/24 08:00 98.2 F 80 16 107/62 95 02/04/24 01:27 98.6 F 78 16 107/68 96 02/03/24 20:00 98.8 F 95 16 103/64 92 L 02/03/24 13:14 98.7 F 88 17 122/71 95 02/03/24 11:35 80 16 114/72 96 02/03/24 11:15 86 16 121/72 96 02/03/24 11:05 92 16 114/68 96 Intake and Output 02/03/24 02/04/24 02/04/24 22:59 06:59 14:59 Output Total 900 20 Balance -900 -20 Output: Drainage 20 Left Lower 20 Urine 900 Other: Voiding Method Urinal Urinal Diaper Diaper External Catheter GENERAL DESCRIPTION: Elderly male lying in bed, no distress. No tachypnea or accessory muscle of respiration use. HEENT: Shows Pallor , no scleral icterus. Oral mucous membrane is dry. No pharyngeal erythema or thrush NECK: Trachea central, no thyromegaly. LUNGS: Unlabored breathing. Clear to auscultation anteriorly. No wheeze or crackle. HEART: S1, S2, regular rate and rhythm. No loud murmur ABDOMEN: Soft, mild tenderness EXTREMITIES: No edema of feet. SKIN: No rash, no masses palpable. NEUROLOGICAL: The patient is awake, alert, oriented x3, mood and affect normal. Results CBC & Chem 7: 02/04/24 05:46 02/05/24 02:28 Labs: Abnormal Lab Results - Last 24 Hours (Table) 02/04/24 02/04/24 Range/Units 05:46 05:46 WBC 17.9 H (3.8-10.6) k/uL RBC 3.80 L (4.30-5.90) m/uL Hgb 12.1 L (13.0-17.5) gm/dL Hct 37.3 L (39.0-53.0) % Neutrophils # 16.3 H (1.3-7.7) k/uL Lymphocytes # 0.6 L (1.0-4.8) k/uL Sodium 131 L (137-145) mmol/L Potassium 2.9 L (3.5-5.1) mmol/L Chloride 95 L (98-107) mmol/L Calcium 7.9 L (8.4-10.2) mg/dL Total Protein 4.5 L (6.3-8.2) g/dL Albumin 2.1 L (3.5-5.0) g/dL Assessment and Plan (1) Diverticulitis of intestine with abscess Current Visit: Yes Status: Acute Code(s): K57.80 - DVTRCLI OF INTEST, PART UNSP, W PERF AND ABSCESS W/O BLEED SNOMED Code(s): 562832429 (2) Allergy to multiple antibiotics Current Visit: Yes Status: Acute Code(s): Z88.1 - ALLERGY STATUS TO OTHER ANTIBIOTIC AGENTS SNOMED Code(s): 000126750 Plan: 1patient presented hospital with complicated diverticulitis with perforation and abscess in this patient who is status post CT-guided drainage of the abscess unfortunately the patient has pulled out his drainage catheter that would complicate his care. 2patient did have penicillin and Keflex in which there were limited number of antibiotics safe to use however as reported the was questioning his Keflex allergy. 3we will discontinue Levaquin start the patient on cefepime for better gram- negative coverage and continue with the Flagyl. 4await evaluation by IR if the drainage catheter can be placed back versus surgical intervention. We will follow on clinical condition and cultures to further adjust medication if needed Thank you for this consultation we will follow the patient along with you Dictation was produced using [employer] dictation software. please excuse any grammatical, word or spelling errors. Time with Patient: Greater than 30
--- NOTE | 2024-02-05 11:22 | P.PN ---
Subjective Patient seen and evaluated at bedside. Patient has increased abdominal pain after pulling out ir drain. Objective - Vital Signs Vital signs: Vital Signs Temp 97.7 F 02/05/24 07:32 Pulse 67 02/05/24 07:32 Resp 14 02/05/24 07:32 BP 101/65 02/05/24 07:32 Pulse Ox 96 02/05/24 07:32 FiO2 Intake & Output 02/04/24 02/05/24 02/05/24 18:59 06:59 18:59 Intake Total 1500 1020 Output Total 870 1000 Balance 630 20 Intake: Intake, IV Titration 1500 900 Amount Cefepime 2 gm In Sodium 100 Chloride 0.9% 100 ml @ 25 mls/hr IVPB Q12H [facility] Rx# :[id number] Cefepime 2 gm In Sodium 100 Chloride 0.9% 100 ml @ 25 mls/hr IVPB Q8H [facility] Rx#: [id number] Lactated Ringers 1,000 ml 1200 700 @ 100 mls/hr IV .Q10H [facility] Rx#:[id number] metroNIDAZOLE-NS PMX 500 200 100 mg In Saline 1 100ml.bag @ 100 mls/hr IVPB Q8HR [facility] Rx#:[id number] Oral 120 Output: Drainage 20 Left Lower 20 Urine 850 1000 Other: Voiding Method Urinal Urinal External Catheter Diaper Diaper External Catheter External Catheter # Bowel Movements 1 - Exam gen: nad cv: rrr pul: non labored breathing abd: soft, distended, tender to palpation in the left lower quadrant - Labs CBC & Chem 7: 02/04/24 05:46 02/05/24 02:28 Labs: Abnormal Lab Results - Last 24 Hours (Table) 02/04/24 02/05/24 Range/Units 12:45 02:28 Sodium 128 L 128 L (137-145) mmol/L Potassium 2.9 L (3.5-5.1) mmol/L Glucose 115 H (74-99) mg/dL Calcium 7.9 L 8.1 L (8.4-10.2) mg/dL Microbiology - Last 24 Hours (Table) 02/03/24 11:25 Gram Stain - Preliminary Aspirate Assessment and Plan Assessment: 83 yo male w/ diverticular abscess w/ previous IR drain pt recently pulled out IR drain IR reconsulted for drain placement, repeat ct demonstrates gross spillage prompting indication to go to OR pt was scheduled to go to OR emergently today however i had an extensive discussion with family regarding quality of life and given patient has severe dementia they decided against surgery. This was communicated with OR staff, nursing and Dr. Sher. Time with Patient: Greater than 30
--- NOTE | 2024-02-05 14:23 | P.PN ---
Subjective Progress Note Date: 02/05/24 Principal diagnosis: Reason for follow-up is perforated diverticulitis with abscess multiple antibiotic allergies Patient is a 83-year-old male with a past medical history significant hypertension hyperlipidemia presenting to the hospital with a perforated diverticulitis with an abscess over the CT done in the outpatient setting patient did have CT-guided drainage catheter with the patient subsequently pulled out, infectious disease was consulted because of his antibiotic allergies. On today's evaluation that is 02/05/2024, Patient did have low-grade fever of 99.9 negative on her last night, the patient is afebrile this morning he is breathing comfortably no pulmonary symptoms slightly more awake and alert no chest pain shortness with or cough or any worsening abdominal pain has been reported. Patient did have creatinine 1.03 abdominal culture growing E. coli and Streptococcus anginosus repeat CT did shows worsening Objective - Vital Signs Vital signs: Vital Signs Temp 97.7 F 02/05/24 07:32 Pulse 67 02/05/24 07:32 Resp 14 02/05/24 07:32 BP 101/65 02/05/24 07:32 Pulse Ox 96 02/05/24 07:32 FiO2 Intake & Output 02/04/24 02/05/24 02/05/24 18:59 06:59 18:59 Intake Total 1500 1020 Output Total 870 1000 Balance 630 20 Intake: Intake, IV Titration 1500 900 Amount Cefepime 2 gm In Sodium 100 Chloride 0.9% 100 ml @ 25 mls/hr IVPB Q12H [facility] Rx# :[id number] Cefepime 2 gm In Sodium 100 Chloride 0.9% 100 ml @ 25 mls/hr IVPB Q8H [facility] Rx#: [id number] Lactated Ringers 1,000 ml 1200 700 @ 100 mls/hr IV .Q10H [facility] Rx#:[id number] metroNIDAZOLE-NS PMX 500 200 100 mg In Saline 1 100ml.bag @ 100 mls/hr IVPB Q8HR [facility] Rx#:[id number] Oral 120 Output: Drainage 20 Left Lower 20 Urine 850 1000 Other: Voiding Method Urinal Urinal External Catheter Diaper Diaper External Catheter External Catheter # Bowel Movements 1 - Exam GENERAL DESCRIPTION: An elderly male lying in bed in no distress RESPIRATORY SYSTEM: Unlabored breathing , decreased breath sounds at bases HEART: S1 S2 regular rate and rhythm , ABDOMEN: Soft , left-sided tenderness EXTREMITIES: No edema feet - Labs CBC & Chem 7: 02/04/24 05:46 02/05/24 02:28 Labs: Abnormal Lab Results - Last 24 Hours (Table) 02/04/24 02/05/24 Range/Units 12:45 02:28 Sodium 128 L 128 L (137-145) mmol/L Potassium 2.9 L (3.5-5.1) mmol/L Glucose 115 H (74-99) mg/dL Calcium 7.9 L 8.1 L (8.4-10.2) mg/dL Microbiology - Last 24 Hours (Table) 02/03/24 11:25 Gram Stain - Preliminary Aspirate Body Fluid Culture - Preliminary Escherichia coli Streptococcus anginosus Assessment and Plan (1) Diverticulitis of intestine with abscess Current Visit: Yes Status: Acute Code(s): K57.80 - DVTRCLI OF INTEST, PART UNSP, W PERF AND ABSCESS W/O BLEED SNOMED Code(s): 584438608 (2) Allergy to multiple antibiotics Current Visit: Yes Status: Acute Code(s): Z88.1 - ALLERGY STATUS TO OTHER ANTIBIOTIC AGENTS SNOMED Code(s): 014072264 Plan: 1patient presented hospital with complicated diverticulitis with perforation and abscess in this patient who is status post CT-guided drainage of the abscess unfortunately the patient has pulled out his drainage catheter that would complicate his care. 2patient did have penicillin and Keflex in which there were limited number of antibiotics safe to use however as reported the was questioning his Keflex allergy. 3patient repeat CAT scan did shows worsening surgery has discussed with the who is leaning more towards possible comfort/hospice care which may be appropriate for now the patient is covered cefepime and Flagyl which can be safely discontinued. If the patient is switched to hospice Dictation was produced using [employer] dictation software. please excuse any grammatical, word or spelling errors.
--- NOTE | 2024-02-05 16:33 | P.PN ---
Progress Note - Text Progress Note Date: 02/05/24 Chief Complaint: Jack pain This 83-year-old patient who follows with Dr. Washburn. Because of underlying dementia patient not able to give much of a history. History is obtained by the nurse in the ER and, transfer notes from [facility]. Chronic medical conditions include hypertension, some colon resection for colon cancer, gout, dementia hyperlipidemia. Patient presented to the ER for 1 week of abdominal pain. At the baseline patient has diarrhea. CT scan showed proximal sigmoid area air-fluid level collection 6.1 x 9.5 cm representing an abscess. Patient started on IV Levaquin and Flagyl in the ER. IV fluids. Made NPO. Patient's was present earlier was left the ER now. February 01: Patient remains NPO. Not in distress. Getting IV Levaquin and Flagyl. IV fluids. Discussed with the at the bedside. Patient has some abdominal pain but nothing significant. Awaiting interventional radiology to place a drain, scheduled for tomorrow February 02: Patient had interventional radiology place a drain in the peridiverticular abscess. Putting out yellow-brown in the back. at the bedside. Remains on IV Levaquin and Flagyl. IV fluids. Remains n.p.o. February 03: Patient did pull out his pigtail catheter. IR was reconsulted. Spoke to the nurse to get a sitter. Inform family. Antibiotics are to continue. Patient started on clear liquids yesterday. February 04: This morning Dr. Santos/surgeon currently. Repeat CT scan showing fecal matter in the abdomen and spillage. Patient required a colostomy bag. Given patient dementia and risk of pulling it out which is high he spoke to the and leading for hospice. Therefore. I met with the patient's . Lengthy discussion. Different options given about hospice. Called social welfare clerk Sukhwinder. Will arrange for the same. Comfort feeding. Hopefully plan for discharge with hospice tomorrow. Otherwise rather comfortable Active Medications Acetaminophen (Acetaminophen Tab 325 Mg Tab) 650 mg PO Q6HR PRN PRN Reason: Mild Pain or Fever > 100.5 Last Admin: 02/05/24 13:59 Dose: 650 mg Atorvastatin Calcium (Atorvastatin 80 Mg Tab) 80 mg PO DAILY [facility] Last Admin: 02/05/24 08:32 Dose: 80 mg Donepezil HCl (Donepezil 10 Mg Tab) 10 mg PO DAILY [facility] Last Admin: 02/05/24 08:33 Dose: 10 mg Enoxaparin Sodium (Enoxaparin 40 Mg/0.4 Ml Syringe) 40 mg SQ DAILY [facility] Last Admin: 02/05/24 09:20 Dose: Not Given Metronidazole 500 mg/ IV (Solution) 100 mls @ 100 mls/hr IVPB Q8HR [facility]; Protocol Last Admin: 02/05/24 15:13 Dose: 100 mls/hr Lactated Ringer's (Lactated Ringers) 1,000 mls @ 100 mls/hr IV .Q10H [facility] Last Admin: 02/05/24 15:13 Dose: 100 mls/hr Cefepime HCl 2 gm/ Sodium (Chloride) 100 mls @ 25 mls/hr IVPB Q12H [facility]; Protocol Last Admin: 02/05/24 11:29 Dose: 25 mls/hr Losartan Potassium (Losartan 50 Mg Tab) 50 mg PO DAILY [facility] Last Admin: 02/05/24 08:32 Dose: 50 mg Memantine (Memantine 10 Mg Tab) 10 mg PO BID [facility] Last Admin: 02/05/24 08:33 Dose: 10 mg Naloxone HCl (Naloxone 0.4 Mg/Ml 1 Ml Vial) 0.2 mg IV Q2M PRN PRN Reason: Opioid Reversal -Physical examination: VITAL SIGNS: 97.5, 68, 16, 113/69, 93% room air GENERAL: Laying in bed appears comfortable EYES: Pupils equal. Conjunctiva yanni l. HEENT: External appearance of nose and ears normal, oral cavity grossly normal. NECK: JVD not raised; masses not palpable. HEART: First and second heart sounds are normal; no edema. LUNGS: Respiratory rate normal; decreased breath sounds. ABDOMEN: Soft, left-sided tenderness, no guarding or rigidity liver spleen not palpable, no masses palpable. Pigtail catheter was pulled out by the patient PSYCH: Patient can tell his name. Not sure about the age. Not sure about the month or the president l. MUSCULOSKELETAL:No Clubbing/cyanosis;muscles-grossly intact. OA INVESTIGATIONS, reviewed in the clinical context: CT abdomen pelvis [February 03] left lower anterior fluid collection which extends from the abdominal cavity into the multiple layers abdominal wall and subcutaneous tissues. Fluid gas and feces has reaccumulated which previously had a drainage catheter in place. 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 Gallstones February 04: Potassium 4 sodium 128 creatinine 1.03 February 03: White count 17.9 hemoglobin 12.1 platelets 344 sodium 128 potassium 2.9 creatinine 0.95 February 01: White count 7.6 hemoglobin 12.5 platelets 361 potassium 3.2 creatinine 1.2 Blood work from [facility]: White count 14.3 hemoglobin 13.4 platelets 315 sodium 131 potassium 2.9 BUN 20[address] scan abdomen results: Gallstones. 1.8 cm nodule left lobe of the liver. Inflammatory changes around the proximal sigmoid colon along with a air-fluid collection 6.1 x 9.5 cm. Assessment plan: -Acute diverticulitis with perforation with probable contained abscess with a CT scan showing 6.1 x 9.5 cm.: Slow to respond IV Levaquin. IV Flagyl. General surgery following. interventional radiology guided pigtail catheter placement with a bag. Yellow- brown colored output Clear liquids. February 03: Overnight patient pulled out the pigtail catheter. IR reconsulted for replacement of the tube. Will order a sitter for the same.-When is not available CT scan on February 03 shows spillage of fecal material in the abdomen. With fistula. Given high risk and the need for colostomy has decided against surgery as patient keep pulling of the colostomy bag. Opting for hospice -Severe cognitive impairment from underlying Alzheimer's dementia Namenda. Aricept -Essential hypertension Losartan. Stop hydrochlorothiazide -Severe hypokalemia: New diagnosis Replace and follow DC hydrochlorothiazide -Hyponatremia Lactated Ringer's -Hyperlipidemia Crestor -History of prior colon cancer with localized resection -DNR Advance care planning [February 05, 2024]: Discussed length with patient's at the bedside. What she had initially discussed with Dr. Santos this morning. Pros and cons were discussed. Different aspects of hospice were discussed. Including home and hospice places. Home health etc. was also discussed. overhead worker and informed. Plan to discharge with hospice tomorrow. Comfort feeding discussed. is also discussing visit with her children. Time spent about 2530 minutes Past Medical History Past Medical History: Hyperlipidemia, Hypertension History of Any Multi-Drug Resistant Organisms: None Reported Past Surgical History: Tonsillectomy Additional Past Surgical History / Comment(s): Right toe, left knee Past Psychological History: No Psychological Hx Reported Smoking Status: Never smoker Past Alcohol Use History: Occasional Past Drug Use History: None Reported
--- NOTE | 2024-02-06 13:08 | P.PN ---
Subjective Progress Note Date: 02/06/24 CHIEF COMPLAINT: Diverticulitis with abscess HISTORY OF PRESENT ILLNESS: Patient is confused. He pulled out his IV. He pulled out his drain yesterday. Patient's wanted to proceed with comfort care and hospice. She has a meeting with hospice again today. Patient's family has decided against surgery. PHYSICAL EXAM: VITAL SIGNS: Reviewed. GENERAL: no acute distress. Abdomen distended. Tenderness left lower quadrant NEUROLOGIC: Confused ASSESSMENT: 1. Diverticulitis with abscess and perforation. Had previous IR drain 2. Dementia PLAN: -Family has declined surgery. They want to proceed with comfort care and hospice. - requesting 1 more day in the hospital to make preparations at home and planning for discharge home with hospice tomorrow Physician [employer] Winding Machine Tender note has been reviewed by physician. Signing provider agrees with the documented findings, assessment, and plan of care. Objective - Vital Signs Vital signs: Vital Signs Temp 99.2 F 02/06/24 07:44 Pulse 81 02/06/24 07:44 Resp 16 02/06/24 07:44 BP 102/63 02/06/24 07:44 Pulse Ox 94 L 02/06/24 07:44 FiO2 Intake & Output 02/05/24 02/06/24 02/06/24 18:59 06:59 18:59 Intake Total 360 Balance 360 Intake: Oral 360 Other: Voiding Method External Catheter Diaper # Voids 2 2 1 # Bowel Movements 1 1 - Labs CBC & Chem 7: 02/04/24 05:46 02/05/24 02:28 Labs: Microbiology - Last 24 Hours (Table) 02/03/24 11:25 Gram Stain - Preliminary Aspirate Body Fluid Culture - Preliminary Escherichia coli Escherichia coli#2 Streptococcus anginosus 02/03/24 11:25 Anaerobic Culture - Final Aspirate Assessment and Plan Assessment: Patient will be discharged home family understand the morbidity/mortality discussed w/ greater than 30 minutes Time with Patient: Less than 30
[2024-02-06 14:12] VITALS: BMI 24.3
--- NOTE | 2024-02-06 15:18 | P.PN ---
Subjective Progress Note Date: 02/06/24 Principal diagnosis: Reason for follow-up is perforated diverticulitis with abscess multiple antibiotic allergies Patient is a 83-year-old male with a past medical history significant hypertension hyperlipidemia presenting to the hospital with a perforated diverticulitis with an abscess over the CT done in the outpatient setting patient did have CT-guided drainage catheter with the patient subsequently pulled out, infectious disease was consulted because of his antibiotic allergies. On today's evaluation that is 02/06/2024, patient has been afebrile, patient is breathing comfortably and is currently on room air, patient denies having any significant cough no chest pain, patient denies any worsening abdominal pain no nausea no vomiting. Patient did not have any lab draw today, abdominal culture positive for E. coli Streptococcus and bacteroids Objective - Vital Signs Vital signs: Vital Signs Temp 99.2 F 02/06/24 07:44 Pulse 81 02/06/24 07:44 Resp 16 02/06/24 07:44 BP 102/63 02/06/24 07:44 Pulse Ox 94 L 02/06/24 07:44 FiO2 Intake & Output 02/05/24 02/06/24 02/06/24 18:59 06:59 18:59 Intake Total 360 Balance 360 Intake: Oral 360 Other: Voiding Method External Catheter Diaper # Voids 2 2 1 # Bowel Movements 1 1 - Exam GENERAL DESCRIPTION: An elderly male lying in bed in no distress RESPIRATORY SYSTEM: Unlabored breathing , decreased breath sounds at bases HEART: S1 S2 regular rate and rhythm , ABDOMEN: Soft , left-sided tenderness EXTREMITIES: No edema feet - Labs CBC & Chem 7: 02/04/24 05:46 02/05/24 02:28 Labs: Microbiology - Last 24 Hours (Table) 02/03/24 11:25 Gram Stain - Preliminary Aspirate Body Fluid Culture - Preliminary Escherichia coli Escherichia coli#2 Streptococcus anginosus 02/03/24 11:25 Anaerobic Culture - Final Aspirate Assessment and Plan (1) Diverticulitis of intestine with abscess Current Visit: Yes Status: Acute Code(s): K57.80 - DVTRCLI OF INTEST, PART UNSP, W PERF AND ABSCESS W/O BLEED SNOMED Code(s): 828701283 (2) Allergy to multiple antibiotics Current Visit: Yes Status: Acute Code(s): Z88.1 - ALLERGY STATUS TO OTHER ANTIBIOTIC AGENTS SNOMED Code(s): 543146961 Plan: 1patient presented hospital with complicated diverticulitis with perforation and abscess in this patient who is status post CT-guided drainage of the abscess unfortunately the patient has pulled out his drainage catheter that would complicate his care. 2patient did have penicillin and Keflex in which there were limited number of antibiotics safe to use however as reported the was questioning his Keflex allergy. 3patient repeat CAT scan did shows worsening surgery has discussed with the who is leaning more towards possible comfort/hospice care which may be appropriate 4-patient is currently covered with cefepime and Flagyl which can be safely discontinued once switched to hospice Dictation was produced using [employer] dictation software. please excuse any grammatical, word or spelling errors. Time with Patient: Less than 30
--- NOTE | 2024-02-06 21:48 | P.PN ---
Progress Note - Text Progress Note Date: 02/06/24 Chief Complaint: Jack pain This 83-year-old patient who follows with Dr. Washburn. Because of underlying dementia patient not able to give much of a history. History is obtained by the nurse in the ER and, transfer notes from [facility]. Chronic medical conditions include hypertension, some colon resection for colon cancer, gout, dementia hyperlipidemia. Patient presented to the ER for 1 week of abdominal pain. At the baseline patient has diarrhea. CT scan showed proximal sigmoid area air-fluid level collection 6.1 x 9.5 cm representing an abscess. Patient started on IV Levaquin and Flagyl in the ER. IV fluids. Made NPO. Patient's was present earlier was left the ER now. February 01: Patient remains NPO. Not in distress. Getting IV Levaquin and Flagyl. IV fluids. Discussed with the at the bedside. Patient has some abdominal pain but nothing significant. Awaiting interventional radiology to place a drain, scheduled for tomorrow February 02: Patient had interventional radiology place a drain in the peridiverticular abscess. Putting out yellow-brown in the back. at the bedside. Remains on IV Levaquin and Flagyl. IV fluids. Remains n.p.o. February 03: Patient did pull out his pigtail catheter. IR was reconsulted. Spoke to the nurse to get a sitter. Inform family. Antibiotics are to continue. Patient started on clear liquids yesterday. February 04: This morning Dr. Santos/surgeon currently. Repeat CT scan showing fecal matter in the abdomen and spillage. Patient will be required a colostomy bag. Given patient dementia and risk of pulling it out which is high he spoke to the and leading for hospice. Therefore. I met with the patient's . Lengthy discussion. Different options given about hospice. Called health social work professor Sukhwinder. Will arrange for the same. Comfort feeding. Hopefully plan for discharge with hospice tomorrow. Otherwise rather comfortable February 05: Social work is working with hospice. Patient with mild abdominal discomfort. Otherwise appears comfortable. Hospice is working to get the patient home will probably happen tomorrow morning. Patient's IV came out. Told the nurse to discontinue the antibiotics. Comfort feeding. Active Medications Acetaminophen (Acetaminophen Tab 325 Mg Tab) 650 mg PO Q6HR PRN PRN Reason: Mild Pain or Fever > 100.5 Last Admin: 10/04/24 08:06 Dose: 650 mg Enoxaparin Sodium (Enoxaparin 40 Mg/0.4 Ml Syringe) 40 mg SQ DAILY [facility] Last Admin: 02/06/24 08:05 Dose: 40 mg Losartan Potassium (Losartan 50 Mg Tab) 50 mg PO DAILY [facility] Last Admin: 02/06/24 08:01 Dose: Not Given Naloxone HCl (Naloxone 0.4 Mg/Ml 1 Ml Vial) 0.2 mg IV Q2M PRN PRN Reason: Opioid Reversal -Physical examination: VITAL SIGNS: 98.8, 84, 18, 122 x 74, 95% room air GENERAL: Laying in bed appears comfortable EYES: Pupils equal. Conjunctiva yanni l. HEENT: External appearance of nose and ears normal, oral cavity grossly normal. NECK: JVD not raised; masses not palpable. HEART: First and second heart sounds are normal; no edema. LUNGS: Respiratory rate normal; decreased breath sounds. ABDOMEN: Soft, mild left-sided tenderness, no guarding or rigidity liver spleen not palpable, no masses palpable. Pigtail catheter was pulled out by the patient PSYCH: Patient can tell his name. Not sure about the age. Not sure about the month or the president l. MUSCULOSKELETAL:No Clubbing/cyanosis;muscles-grossly intact. OA INVESTIGATIONS, reviewed in the clinical context: CT abdomen pelvis [February 03] left lower anterior fluid collection which extends from the abdominal cavity into the multiple layers abdominal wall and subcutaneous tissues. Fluid gas and feces has reaccumulated which previously had a drainage catheter in place. 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 Gallstones February 04: Potassium 4 sodium 128 creatinine 1.03 February 03: White count 17.9 hemoglobin 12.1 platelets 344 sodium 128 potassium 2.9 creatinine 0.95 February 01: White count 7.6 hemoglobin 12.5 platelets 361 potassium 3.2 creatinine 1.2 Blood work from [facility]: White count 14.3 hemoglobin 13.4 platelets 315 sodium 131 potassium 2.9 BUN [address] scan abdomen results: Gallstones. 1.8 cm nodule left lobe of the liver. Inflammatory changes around the proximal sigmoid colon along with a air-fluid collection 6.1 x 9.5 cm. Assessment plan: -Acute diverticulitis with perforation with probable contained abscess with a CT scan showing 6.1 x 9.5 cm.: Slow to respond IV Levaquin. IV Flagyl. General surgery following. interventional radiology guided pigtail catheter placement with a bag. Yellow- brown colored output Clear liquids. February 03: Overnight patient pulled out the pigtail catheter. IR reconsulted for replacement of the tube. Will order a sitter for the same.-When is not available CT scan on February 03 shows spillage of fecal material in the abdomen. With fistula. Given high risk and the need for colostomy has decided against surgery as patient keep pulling of the colostomy bag. Opted for hospice. DC antibiotics. -Severe cognitive impairment from underlying Alzheimer's dementia Namenda. Aricept -Essential hypertension Losartan. Stop hydrochlorothiazide -Severe hypokalemia: Replace and follow DC hydrochlorothiazide -Hyponatremia Lactated Ringer's -Hyperlipidemia Crestor -History of prior colon cancer with localized resection -DNR Advance care planning [February 05, 2024]: Discussed length with patient's at the bedside. What she had initially discussed with Dr. Santos this morning. Pros and cons were discussed. Different aspects of hospice were discussed. Including home and hospice places. Home health etc. was also discussed. bingo worker and informed. Plan to discharge with hospice tomorrow. Comfort feeding discussed. is also discussing visit with her children. Time spent about 2530 minutes Hospice is warranted to get the patient home. Will home tomorrow with with hospice. Past Medical History Past Medical History: Hyperlipidemia, Hypertension History of Any Multi-Drug Resistant Organisms: None Reported Past Surgical History: Tonsillectomy Additional Past Surgical History / Comment(s): Right toe, left knee Past Psychological History: No Psychological Hx Reported Smoking Status: Never smoker Past Alcohol Use History: Occasional Past Drug Use History: None Reported
[2024-02-07 01:45] VITALS: PULSE 73
[2024-02-07 07:35] VITALS: BP 126/80; RESP 16; TEMP 98.1
--- NOTE | 2024-02-07 10:04 | P.PN ---
Progress Note - Text Progress Note Date: 02/07/24 CHIEF COMPLAINT: Diverticulitis with abscess HISTORY OF PRESENT ILLNESS: NAEO PHYSICAL EXAM: VITAL SIGNS: Reviewed. GENERAL: no acute distress. Abdomen distended. Tenderness left lower quadrant NEUROLOGIC: Confused ASSESSMENT: 1. Diverticulitis with abscess and perforation. Had previous IR drain 2. Dementia PLAN: -Family has declined surgery. They want to proceed with comfort care and hospice. -Discharge home with hospice today Aleksander Adler DO [facility] [phone]
== END 2024-02-07 10:52 | disposition hospice, home (50) | DRG 392 ==
LOC: EC 14:31 → 5NMEDONC 15:29 → 1SOBS 02-02 10:22 → 6NMEDSUR 02-05 17:53
PROVIDERS: ADMIT Surgery; ATTEND Surgery
DX: K57.20 Diverticulitis of large intestine with perforation and abscess without bleeding (principal); K63.2 Fistula of intestine; E87.1 Hypo-osmolality and hyponatremia; Z51.5 Encounter for palliative care; Z66 Do not resuscitate; K76.89 Other specified diseases of liver; G30.9 Alzheimer's disease, unspecified; F02.C0 Dementia in other diseases classified elsewhere, severe, without behavioral disturbance, psychotic disturbance, mood disturbance, and anxiety; Z93.3 Colostomy status; I10 Essential (primary) hypertension; B95.4 Other streptococcus as the cause of diseases classified elsewhere; E87.6 Hypokalemia; B96.20 Unspecified Escherichia coli [E. coli] as the cause of diseases classified elsewhere; K80.20 Calculus of gallbladder without cholecystitis without obstruction; E78.5 Hyperlipidemia, unspecified; M10.9 Gout, unspecified; Z85.038 Personal history of other malignant neoplasm of large intestine; Z79.82 Long term (current) use of aspirin; Z79.899 Other long term (current) drug therapy; Z90.49 Acquired absence of other specified parts of digestive tract; Z88.1 Allergy status to other antibiotic agents; Z88.0 Allergy status to penicillin
CPT/HCPCS: 71045; 74177; 75989; 80048; 80053; 84132; 85025; 85610; 87070; 87075; 87077; 87186; 87205; 93005; 96361; 96365; 96366; 96372; 96375; 96376; 99285